=== PATIENT | female | born 1965 | race Caucasian/White ===

== ENCOUNTER 2021-11-03 15:25 | Emergency (ER) | payer MEDICARE, MEDICAID ==
[2021-11-03] MEDS: Acetaminophen 500 MG Tab PO ONE ×2 (15:44→15:53)
[2021-11-03 16:12] LABS: ESTIMATED GFR 66 mL/min (>60)
[2021-11-03 20:03] VITALS: PULSE 83
[2021-11-03 20:09] VITALS: BP 147/91
== END 2021-11-03 16:55 | disposition home or self-care (01) ==
LOC: FB.ED 15:25
DX: R07.9 Chest pain, unspecified (principal); J44.9 Chronic obstructive pulmonary disease, unspecified; E66.9 Obesity, unspecified; Z68.31 Body mass index [BMI] 31.0-31.9, adult; Z88.1 Allergy status to other antibiotic agents; Z88.8 Allergy status to other drugs, medicaments and biological substances; Z88.4 Allergy status to anesthetic agent; Z88.5 Allergy status to narcotic agent; Z90.49 Acquired absence of other specified parts of digestive tract; Z90.710 Acquired absence of both cervix and uterus
CPT/HCPCS: 36415; 80053; 84484; 85025; 99285; A9270-GY

== ENCOUNTER → 2023-11-03 | Day surgery (SDC) | payer MEDICAID, MEDICARE ==
[~2023-11-03] MED LIST: Ketamine 500 mg/10 ML MDV IV ONE; Ketorolac 30 MG/ML SDV IVPUSH ONE; Midazolam 1 MG/ML 2 ML SDV IV ONE; Ondansetron 4 MG/2 ML SDV IVPUSH ONE; Propofol 200 MG/20 ML SDV IV ONE; Sodium Chloride 0.9% 10 ML Syringe FLUSH PRN; dexmedeTOMIDine HCl 200 MCG/2 ML SDV IV ONE; fentaNYL 100 MCG/2 ML SDV IV ONE
[2023-11-03] MEDS: Lactated Ringers 1,000 ML IV SCH (07:30)
[2023-11-03] MEDS: ceFAZolin 2 GM Vial IVPUSH ONE (07:44)
[2023-11-03 11:21] VITALS: BP 78/57; PULSE 69
== END ==
LOC: FB.SDS 06:18
PROVIDERS: ATTEND Surgery
DX: D17.24 Benign lipomatous neoplasm of skin and subcutaneous tissue of left leg (principal); K21.9 Gastro-esophageal reflux disease without esophagitis; J44.9 Chronic obstructive pulmonary disease, unspecified; F41.9 Anxiety disorder, unspecified; E78.5 Hyperlipidemia, unspecified; E66.9 Obesity, unspecified; F17.210 Nicotine dependence, cigarettes, uncomplicated; Z68.31 Body mass index [BMI] 31.0-31.9, adult; Z79.899 Other long term (current) drug therapy; Z88.8 Allergy status to other drugs, medicaments and biological substances; Z91.041 Radiographic dye allergy status; Z88.5 Allergy status to narcotic agent
CPT/HCPCS: 00400; 88304; J0690; J1885; J2250; J2405; J2704; J3010; J3490; J7120